=== PATIENT | male | born 1960 | race Caucasian/White ===

== ENCOUNTER 2020-03-19 07:59 | Day surgery (SDC) | payer BC ==
[2020-03-19] MEDS ORDERED: Lactated Ringers 1,000 ML IV SCH (08:00)
[2020-03-19] MEDS ORDERED: Sodium Chloride 0.9% 10 ML Syringe FLUSH PRN (08:00)
[2020-03-19] MEDS ORDERED: Midazolam 1 MG/ML 2 ML SDV IV ONE (08:00)
[2020-03-19] MEDS ORDERED: Glycopyrrolate 0.2 MG/ML SDV IVPUSH ONE (08:00)
[2020-03-19] MEDS ORDERED: Ondansetron 4 MG/2 ML SDV IV ONE (08:00)
[2020-03-19] MEDS ORDERED: Lidocaine 2% 5 ML SDV IV ONE (08:00)
[2020-03-19] MEDS ORDERED: Propofol 200 MG/20 ML SDV IV ONE (08:00)
[2020-03-19] MEDS ORDERED: Midazolam 1 MG/ML 2 ML SDV ONE (08:57)
[2020-03-19] MEDS ORDERED: Lidocaine 2% 5 ML SDV ONE (08:57)
[2020-03-19] MEDS ORDERED: Propofol 200 MG/20 ML SDV ONE (08:57)
--- NOTE | 2020-03-19 09:08 | PCM.PN ---
- General Info Date of Service: 03/19/20 - Review of Systems Systems Review Comment:: 60-year-old male referred for EGD and colonoscopy. He has been having symptoms of heartburn as well as dysphagia. He does also have a known history of gastric bypass and required dilation early after that procedure. He has never had a prior colonoscopy. He denies any family history of colon cancer. His recent history and physical is reviewed and no significant changes are noted. I have discussed the proposed EGD and colonoscopy with the patient. Expectations and risks reviewed. He agrees to proceed. - Patient Data Vitals - Most Recent: Last Vital Signs Temp 97.9 F 03/19/20 08:15 Pulse 74 03/19/20 08:15 Resp 16 03/19/20 08:15 BP 139/78 03/19/20 08:15 Pulse Ox 98 03/19/20 08:15 Weight - Most Recent: 127.006 kg Med Orders - Current: Current Medications Lactated Ringer's (Ringers, Lactated) 1,000 mls @ 50 mls/hr IV ASDIRECTED BEBO Last Admin: 03/19/20 08:38 Dose: 50 mls/hr Documented by: Sodium Chloride (Saline Flush) 10 ml FLUSH Q8HR PRN PRN Reason: keep vein open Last Admin: 03/19/20 08:38 Dose: 10 ml Documented by: Discontinued Medications Lidocaine (Xylocaine-Mpf 2%) Confirm Administered Dose 5 ml .ROUTE .STK-MED ONE Stop: 03/19/20 08:58 Midazolam HCl (Versed 1 Mg/Ml) Confirm Administered Dose 2 mg .ROUTE .STK-MED ONE Stop: 03/19/20 08:58 Propofol (Diprivan 20 Ml) Confirm Administered Dose 600 mg .ROUTE .STK-MED ONE Stop: 03/19/20 08:58 Sepsis Event Note - Focused Exam Vital Signs: Vital Signs Temp Pulse Resp BP Pulse Ox 03/19/20 08:15 97.9 F 74 16 139/78 98 - Problem List Review Problem List Initiated/Reviewed/Updated: Yes - My Orders Last 24 Hours: My Active Orders 03/18/20 13:08 Resuscitation Status Routine 03/19/20 08:00 Peripheral IV Care [RC] . DIRECTED Nothing Per Oral Diet [DIET] Lactated Ringers [Ringers, Lactated] 1,000 ml IV ASDIRECTED Sodium Chloride 0.9% [Saline Flush] 10 ml FLUSH Q8HR PRN Peripheral IV Insertion Adult [OM.PC] Routine 03/19/20 08:30 Patient to Empty Bladder [RC] ASDIRECTED 03/19/20 09:00 Verify Patient Consent Obtain [RC] ASDIRECTED - Assessment Assessment:: Heart Burn, Dysphagia Colon Cancer Screening - Plan Plan:: EGD and Colonoscopy
--- NOTE | 2020-03-19 09:53 | PCM.OPNOTE ---
- General Post-Op/Procedure Note Date of Surgery/Procedure: 03/19/20 Operative Procedure(s): EGD with Biopsy. Colonoscopy Findings: Moderate sized acute ulcer (without bleeding) at Gastro-jejunal anastomosis Mild Sigmoid Diverticulosis Pre Op Diagnosis: GERD with Dysphagia. Colon Cancer Screening Post-Op Diagnosis: Anastomotic Ulcer. Sigmoid Diverticulosis Anesthesia Technique: MAC Primary Surgeon: Duncan Medina Pathology: Biopsies of Gastric pouch and anastomosis EBL in mLs: 2 Complications: None Condition: Good
--- NOTE | 2020-03-19 12:22 | OR ---
DATE OF SURGERY: 03/19/2020 SURGEON: Duncan Medina MD PREOPERATIVE DIAGNOSIS: Gastroesophageal reflux disease with dysphagia and colon cancer screening. POSTOPERATIVE DIAGNOSIS: Anastomotic ulcer post José Luis-en-Y gastric bypass and sigmoid diverticulosis. INDICATIONS FOR SURGERY: This 60-year-old male who has had a gastric bypass procedure approximately 10 years ago has been noticing increasing symptoms of GERD as well as some dysphagia. Symptoms do persist despite the use of a PPI agent. The patient has also never had a colonoscopy. FINDINGS: On upper endoscopy, the patient's esophagus and Z-line appear normal. There is no sign of stenosis in this area or visible inflammation. The gastric pouch also appears normal, although at the anastomosis between the gastric pouch and the jejunum, there is a medium-sized acute ulcer with a clean ulcer base and no active bleeding noted. This appears to be causing slight deformity of the anastomosis, although the gastroscope advances past this point without difficulty. The jejunal limb appears normal. On colonoscopy, the patient has a mild degree of diverticulosis in the sigmoid region with small to medium-size diverticula. The colon otherwise appears normal. DESCRIPTION OF PROCEDURE: The patient was taken to the operating room. He is given intravenous sedation and with him in the left lateral decubitus position, the Olympus gastroscope was advanced into the oral cavity via a mouth guard. The scope was then advanced into the esophagus and then down through the gastric pouch into the jejunal limb all under direct visualization. The jejunal limb was carefully examined to the limit of the scope and then the scope was withdrawn back into the gastric pouch and anastomosis area where the above- described ulcer was identified. Biopsies of the region of the anastomosis were taken and the scope was withdrawn back into the gastric pouch where biopsies randomly are taken to rule out H pylori. The GE junction and esophagus were then re-examined as the scope was removed. Attention is turned to colonoscopy. Digital rectal exam was performed showing no rectal masses. The Olympus colonoscope was inserted into the rectum. Retroflexed examination of the rectal canal is performed. The scope was then carefully advanced under direct visualization through the entire length of the colon until cecum is reached. Cecal acquisition is confirmed by noting the normal internal cecal anatomy including the appendiceal orifice and the ileocecal valve. After carefully examining the cecum, the scope was slowly withdrawn sequentially re-examining the colonic segments until the entire colon and rectum had been fully examined. The scope was removed and the patient was taken from the operating room in satisfactory condition. ESTIMATED BLOOD LOSS: 2 mL. COMPLICATIONS: None. PROGNOSIS: Good. /[id number]/MODL
== END 2020-03-19 11:40 | disposition home or self-care (01) ==
LOC: KA.SDS 07:59
PROVIDERS: ATTEND Surgery
DX: Z12.11 Encounter for screening for malignant neoplasm of colon (principal); K57.30 Diverticulosis of large intestine without perforation or abscess without bleeding; K21.9 Gastro-esophageal reflux disease without esophagitis; K29.50 Unspecified chronic gastritis without bleeding; K29.80 Duodenitis without bleeding; G89.29 Other chronic pain; F32.9 Major depressive disorder, single episode, unspecified; I10 Essential (primary) hypertension; Z98.84 Bariatric surgery status; Z79.899 Other long term (current) drug therapy; Z98.890 Other specified postprocedural states
CPT/HCPCS: 00813; J2001; J2250; J2405; J2704; J3490; J7120

== ENCOUNTER 2024-03-02 13:07 | Emergency (ER) | payer BC ==
[2024-03-02] MEDS: Lidocaine 2% 5 ML SDV INJECT ONE (14:18)
[2024-03-02] MEDS: Bacitracin/Neomycin/Polymyxin B Oint 0.9 GM U/D Packet TOP ONE (14:19)
== END 2024-03-02 14:45 | disposition home or self-care (01) ==
LOC: KA.ED 13:07
DX: S51.811A Laceration without foreign body of right forearm, initial encounter (principal); I10 Essential (primary) hypertension; K21.9 Gastro-esophageal reflux disease without esophagitis; E66.9 Obesity, unspecified; Z79.899 Other long term (current) drug therapy; Z68.37 Body mass index [BMI] 37.0-37.9, adult; W19.XXXA Unspecified fall, initial encounter
CPT/HCPCS: 12002; 99282; J3490

== ENCOUNTER 2025-05-08 08:40 | Day surgery (SDC) | payer BC ==
[2025-05-08] MEDS ORDERED: Sodium Chloride 0.9% 10 ML Syringe FLUSH PRN (08:45)
[2025-05-08] MEDS: Lactated Ringers 1,000 ML IV SCH (09:10)
[2025-05-08] MEDS ORDERED: Propofol 200 MG/20 ML SDV ONE (09:43)
[2025-05-08] MEDS ORDERED: Midazolam 1 MG/ML 2 ML SDV ONE (09:43)
[2025-05-08] MEDS ORDERED: Lactated Ringers 1,000 ML ONE (10:36)
== END 2025-05-08 11:51 | disposition home or self-care (01) ==
LOC: KA.SDS 08:40
PROVIDERS: ATTEND Surgery
DX: D12.5 Benign neoplasm of sigmoid colon (principal); K21.00 Gastro-esophageal reflux disease with esophagitis, without bleeding; K57.30 Diverticulosis of large intestine without perforation or abscess without bleeding; I10 Essential (primary) hypertension; Z79.899 Other long term (current) drug therapy
CPT/HCPCS: 43239; 45385; J1596; J2250; J2704; J7120